=== PATIENT | female | born 1970 | race Caucasian/White ===

== ENCOUNTER 2023-09-13 10:25 | Emergency (ER) | payer OTHER, SELFPAY ==
[2023-09-13 10:35] VITALS: BP 142/86; PULSE 85; RESP 16; TEMP 36.9; O2SAT 99
--- NOTE | 2023-09-13 10:55 | ED.EAR ---
HPI - Ear Problem General Chief complaint: Ear Stated complaint: [place] Eye/Ear Pain Time Seen by Provider: 09/13/23 10:55 Source: patient Mode of arrival: ambulatory Limitations: no limitations History of Present Illness HPI Narrative: Barbie is a 52-year-old female patient presenting to the clinic today with complaints of possible left pinkeye and left ear pain. She reports she has been recently swimming. Denies wearing contacts. States that she got a prescription for polymyxin eyedrops from her [employer] however they do not seem to be helping. She has been instilling then for 2 days and still has yellow drainage and red itchy eye. She denies any eye pain or injury. Reports she is also having some white drainage coming from the left ear canal with tenderness. Related Data Home Medications Medication Instructions Recorded Confirmed polymyxin B sulfate 10,000 1 drp LEFT EYE QID 09/13/23 09/13/23 unit-trimethoprim 1 mg/mL eye drops Allergies Allergy/AdvReac Type Severity Reaction Status Date / Time iodine Allergy Hives Verified 09/13/23 10:41 Review of Systems Review of Systems: Pertinent positives per HPI. Patient denies any fever, chills, rash, headache, visual changes, dizziness, cough, runny nose, sore throat, shortness of breath, chest pain, palpitations, nausea, vomiting, diarrhea, constipation, abdominal pain, or any urinary issues. PMFSH Comments At the time of my signature, I reviewed and agree with the nursing past medical, surgical, social, and family history. There is no relevant family history pertinent to the patient complaint. Exam Narrative: General: Well-developed, well nourished, in no apparent distress Head: Normocephalic, atraumatic Eyes: Pupils equally round and reactive to light bilaterally, EOM intact, right sclera and conjunctive clear, no discharge, left sclera and conjunctiva injected with yellow mucopurulent discharge, lids normal Ears: Right TMs intact and clear, some cerumen in the right ear canal, left TM under visualized due to swelling in the left ear canal with white discharge, tenderness to palpation over the tragus and pulling of the pinna of the left ear, hearing decreased in the left ear. Nose: Nares patent, no discharge, no inflammation, no sinus tenderness. Mouth: Oropharynx without lesions or masses, good dentition, MMM. Neck: Supple, trachea midline, no enlargement of anterior or posterior cervical nodes, no thyroid masses or goiter palpable. Cardio: Regular rate and rhythm, s1 and s2 normal, no murmur appreciated. Resp: Clear to auscultation bilaterally anteriorly and posteriorly, no rhonchi, rales, wheezing or rubs Course Course Emergency Course: Portions of this record may have been created with voice recognition software. Level of Care: Express Care Visit Vital Signs Vital signs: Vital signs reviewed Medical Decision Making MDM Narrative Medical decision making narrative: At the time of visit patient is resting comfortably on the exam table. Patient appears to be nontoxic. Plan: I suspect patient has left otitis externa and left conjunctivitis. Prescription for tobramycin eyedrops was sent to the pharmacy as well as ofloxacin ear drops. Supportive measures were discussed with the patient and they voiced understanding discharge instructions and agrees to treatment plan. Return precautions reviewed Differential Diagnosis Differential Diagnosis: Otitis media, otitis externa, eustachian tube dysfunction, cerumen impaction, upper respiratory infection, allergic conjunctivitis, bacterial conjunctivitis, Discharge Plan Discharge Clinical Impression: Otitis externa, Left conjunctivitis Patient Disposition: Home, Self-Care Condition: Stable Instructions: Antibiotic Form, Carbamide Peroxide (Into the ear), Swimmer's Ear (ED), Conjunctivitis (ED) Additional Instructions: Instill debrox into the right ear-4 drops nightly for 3 con
== END 2023-09-13 11:07 | disposition home or self-care (01) ==
PROVIDERS: Emergency Provider Nurse Practitioner Family
DX: H66.92 Otitis media, unspecified, left ear (principal); H10.9 Unspecified conjunctivitis; M19.90 Unspecified osteoarthritis, unspecified site; Z96.642 Presence of left artificial hip joint
CPT/HCPCS: 99213; G0463

== ENCOUNTER 2024-04-05 16:05 | Emergency (ER) | payer OTHER, SELFPAY ==
--- NOTE | 2024-04-05 16:07 | ED.EAR ---
HPI - Ear Problem General Chief complaint: Ear Stated complaint: EYE REDNESS/EARACHE Time Seen by Provider: 04/05/24 16:07 Source: patient Mode of arrival: ambulatory Limitations: no limitations History of Present Illness HPI Narrative: Ada is a 53-year-old female patient presenting to the clinic today with complaints of eye redness and earache. She reports symptoms started last night. States she is having green and yellow discharge coming from the left eye. Denies any eye injury or visual changes. Also reporting bilateral ear pain with drainage coming from her ears. States she has been dealing with some runny nose cough and congestion for some time. Related Data Home Medications ?Medication ?Instructions ?Recorded ?Confirmed ?Last Taken ?Type polymyxin B sulfate 10,000 1 drp LEFT EYE QID 09/13/23 09/13/23 Unknown History unit-trimethoprim 1 mg/mL eye drops Allergies Allergy/AdvReac Type Severity Reaction Status Date / Time iodine Allergy Hives Verified 09/13/23 10:41 Review of Systems Review of Systems: Pertinent positives per HPI. Patient denies any fever, chills, rash, headache, visual changes, dizziness, shortness of breath, chest pain, palpitations, nausea, vomiting, diarrhea, constipation, abdominal pain, or any urinary issues. PMFSH Comments At the time of my signature, I reviewed and agree with the nursing past medical, surgical, social, and family history. There is no relevant family history pertinent to the patient complaint. Exam Narrative: General: Well-developed, well nourished, in no apparent distress Head: Normocephalic, atraumatic Eyes: Pupils equally round and reactive to light bilaterally, EOM intact, sclera and conjunctive clear, no discharge, lids normal Ears: TMs intact and congested, ear canals clear, no drainage, grossly hearing normal. Nose: Nares patent, clear nasal discharge, no inflammation, no sinus tenderness. Mouth: Oral pharynx without lesions or masses, good dentition, MMM. Postnasal drip Neck: Supple, trachea midline, no enlargement of anterior or posterior cervical nodes, no thyroid masses or goiter palpable. Cardio: Regular rate and rhythm, s1 and s2 normal, no murmur appreciated. Resp: Clear to auscultation bilaterally, no rhonchi, rales, wheezing or rubs Course Course Emergency Course: Portions of this record may have been created with voice recognition software. Level of Care: Express Care Visit Vital Signs Vital signs: Vital Signs Temperature 35.8 C L 04/05/24 16:58 Pulse Rate 62 04/05/24 16:58 Respiratory Rate 16 04/05/24 16:58 Blood Pressure 109/86 04/05/24 16:58 Pulse Oximetry 100 04/05/24 16:58 Temperature 35.8 C L 04/05/24 16:58 Pulse Rate 62 04/05/24 16:58 Respiratory Rate 16 04/05/24 16:58 Blood Pressure 109/86 04/05/24 16:58 Pulse Oximetry 100 04/05/24 16:58 Vital signs reviewed Medical Decision Making MDM Narrative Medical decision making narrative: At the time of visit patient is resting comfortably on the exam table. Patient appears to be nontoxic. Plan: I suspect patient has left conjunctivitis and serous otitis. Prescription for prednisone and ofloxacin eyedrops was sent to the pharmacy. Supportive measures were discussed with the patient and they voiced understanding discharge instructions and agrees to treatment plan. Return precautions reviewed Differential Diagnosis Differential Diagnosis: Conjunctivitis, otitis media, otitis externa, eustachian tube dysfunction, cerumen impaction, upper respiratory infection, serous otitis Vital Signs Vital Signs: Vital Signs Temperature 35.8 C L 04/05/24 16:58 Pulse Rate 62 04/05/24 16:58 Respiratory Rate 16 04/05/24 16:58 Blood Pressure 109/86 04/05/24 16:58 Pulse Oximetry 100 04/05/24 16:58 Temperature 35.8 C L 04/05/24 16:58 Pulse Rate 62 04/05/24 16:58 Respiratory Rate 16 04/05/24 16:58 Blood Pressure 109/86 04/05/24 16:58 Pulse Oximetry 100 04/05/24 16:58 Discharge Plan Discharge Clinical Impression: Acute conjunctivitis, left eye Qualifiers: Acute conjunctivitis type: unspecified Qualified Code(s): H10.32 - Unspecified acute conjunctivitis, left eye Bilateral acute serous otitis media Qualifiers: Recurrence: non-recurrent Qualified Code(s): H65.03 - Acute serous otitis media, bilateral Patient Disposition: Home, Self-Care Condition: Stable Instructions: Antibiotic Form, Fluid In The Ear (Serous Otitis Media) (ED), Conjunctivitis (ED) Additional Instructions: Conjunctivitis is considered contagious for 24 hours while on the antibiotic. Practice good hand washing techniques Avoid touching eyes Instill eyedrops as prescribed-ofloxacin May use warm moist washcloth to help remove eye discharge If eyes are matted shut-do not pry eyes open-use a warm moist cloth to loosen matting and wipe matter away from eye May take Tylenol/Motrin as needed for pain or fever May take Benadryl as needed for itching Follow-up with your PCP in 3-5 days if symptoms persist or sooner if they worsen Go to the emergency room if you develop any fever that is not controlled by Tylenol or Motrin, loss of vision, eye pain, increase eye swelling,visual changes, headache, confusion, lethargy, weakness, chest pain, or shortness of breath. Patient Language: [place] Prescriptions: New ofloxacin 0.3 % drops 1 drp EACH EYE QID 7 Days Qty: 10 0RF prednisone 20 mg tablet 40 mg PO DAILY 5 Days Qty: 10 0RF No Action polymyxin B sulf-trimethoprim 10,000 unit- 1 mg/mL drops 1 drp LEFT EYE QID tobramycin 0.3 % drops 1 drp LEFT EYE Q4H 7 Days Qty: 5 0RF ofloxacin 0.3 % drops 5 drp otic (ear) BID 7 Days Qty: 5 0RF Follow-up/Referrals: UNKNOWN,DOCTOR [Non-Staff] - Time of Disposition: 17:05 Quality NIHSS Nursing Documentation ED NIHSS nursing documentation: reviewed/agree
[2024-04-05 16:58] VITALS: BP 109/86; PULSE 62; RESP 16; TEMP 35.8; O2SAT 100
== END 2024-04-05 17:10 | disposition home or self-care (01) ==
PROVIDERS: Emergency Provider Nurse Practitioner Family
DX: H10.32 Unspecified acute conjunctivitis, left eye (principal); H65.03 Acute serous otitis media, bilateral
CPT/HCPCS: 99213; G0463